=== PATIENT | female | born 1945 | race Caucasian/White ===

== ENCOUNTER 2017-01-08 08:14 | Outpatient (CLI) | payer MEDICARE ==
[2017-01-08 12:10] LABS: ALT (SGPT) 26 U/L (8-55); AST (SGOT) 38 U/L (5-34); Albumin 3.7 g/dL (3.4-4.8); Alkaline Phosphatase 184 U/L (40-150); Anion Gap 16 mmol/L (10-20); BUN (Urea Nitrogen) 11 mg/dL (9.8-20.1); Bilirubin, Total 0.8 mg/dL (0.2-1.2); Calc. Creatinine Clearance 0 mL/min (70-130); Calcium 9.7 mg/dL (7.8-10.44); Carbon Dioxide 23 mmol/L (23-31); Cardiac Risk 3.3 (Less than 4.5); Chloride 107 mmol/L (98-107); Cholesterol 194 mg/dl (< 200 Desired); Estimated GFR-MDRD 75; Globulin 4.2 g/dL (2.4-3.5); Glucose 145 mg/dL (83-110); HDL Cholesterol 58 mg/dL (>60 Neg Risk); LDL Cholesterol, Calculated 117 mg/dL; Potassium 4.3 mmol/L (3.5-5.1); Protein, Total 7.9 g/dL (6.0-8.3); Sodium 142 mmol/L (136-145); Triglycerides 96 mg/dL (Less than 150)
[2017-01-08 17:54] LABS: Creatinine, Urine 76.77 mg/dL (47-110); Microalbumin Urine Less than 1.0 mg/dL (0.5-50.0)
[2017-01-08 19:29] LABS: #Basophils 0.2 thou/uL (0.0-0.2); #Eosinphils 0.6 thou/uL (0.0-0.7); #Lymphocytes 2.2 thou/uL (1.20-3.40); #Monocytes 0.6 thou/uL (0.11-0.59); #Neutrophils 2.5 thou/uL (1.40-6.50); %Basophils 2.5 % (0.0-1.0); %Eosinophils 10.6 % (0.0-10.0); %Lymphocytes 36.6 % (21.0-51.0); %Monocytes 9.6 % (0.0-10.0); %Neutrophils 40.7 % (42.0-75.0); Hemoglobin 13.3 g/dL (12.0-16.0); Mean Corpuscular HGB CONC 33.9 g/dL (32.0-36.0); Mean Corpuscular Hemoglobin 33.6 pg (27.0-31.0); Mean Corpuscular Volume 99.3 fl (81.0-99.0); Mean Platelet Volume 5.8 fL (7.4-10.4); PLT Morphology Comment Appears Adequate; Platelet Count 86 thou/uL (130-400); RBC Distribution Width 13.1 % (11.5-14.5); Red Blood Cell (RBC) Count 3.95 mill/uL (4.20-5.40); White Blood Cell (WBC) Count 6.1 thou/uL (4.8-10.8)
== END 2017-01-08 08:15 | disposition home or self-care (01) ==
LOC: NAVSJIPCSP 08:14
PROVIDERS: ATTEND Internal Medicine
DX: E10.51 Type 1 diabetes mellitus with diabetic peripheral angiopathy without gangrene (principal); I65.21 Occlusion and stenosis of right carotid artery; K74.60 Unspecified cirrhosis of liver
CPT/HCPCS: 36415; 80053; 80061; 82043; 83036; 84443; 85025

== ENCOUNTER 2017-02-10 13:56 | Outpatient (CLI) | payer MEDICARE ==
--- NOTE | 2017-02-10 15:38 | CT ---
CT LUMBAR SPINE NONCONTRAST: Date: 02-10-17 History: 71-year-old female with lumbar spinal stenosis. Low back pain. Comparison: None. FINDINGS: In the limited field of view, it is noted that the liver margins are very nodular, and that the medi al aspect of the spleen protrudes far medially. No hydronephrosis. Atherosclerotic calcification wit hout aneurysm of abdominal aorta and most of its branches. Surgical clips in the gallbladder fossa. There are five lumbar type vertebrae. At L1-2 there is mild to moderate disc space narrowing and sli ght degenerative retrolisthesis of L1 on L2. The rest of the disc spaces are maintained. There is no spondylolysis or spondylolisthesis at any level. There is no central spinal canal stenosis at any l evel. There is no high grade neural foraminal stenosis at any level. No evidence of maya nerve root impingement at any level. There is diffuse osteopenia. IMPRESSION: 1. Hepatic cirrhosis. 2. Splenomegaly. 3. Status post cholecystectomy. 4. Osteopenia. 5. Mild to moderate degenerative disc disease at L1-2. 6. Otherwise, the rest of the lumbar spine is essentially normal. POS: STAR
== END 2017-02-10 13:57 | disposition home or self-care (01) ==
LOC: NAV CT 13:56
PROVIDERS: ATTEND Internal Medicine
DX: M48.062 Spinal stenosis, lumbar region with neurogenic claudication (principal); M51.36 Other intervertebral disc degeneration, lumbar region; M85.80 Other specified disorders of bone density and structure, unspecified site; K74.60 Unspecified cirrhosis of liver; R16.1 Splenomegaly, not elsewhere classified; Z90.49 Acquired absence of other specified parts of digestive tract
CPT/HCPCS: 72131

== ENCOUNTER 2017-03-19 09:32 | Outpatient (CLI) | payer MEDICARE ==
--- NOTE | 2017-03-19 10:22 | CT ---
CT CHEST NONCONTRAST CT ABDOMEN AND PELVIS NONCONTRAST: HISTORY: Abnormal chest radiograph. Lung nodule on outside radiograph. FINDINGS: Prior exams are not available for direct comparison. Lungs are hyperinflated with scattered intersti tial scarring. Calcified granulomata within the lungs and liver are consistent with healed granuloma tous disease. Gallbladder is not visualized and presumed surgically absent. No focal parenchymal so ft tissue density lung nodule is apparent. There is calcification in the arterial structures. Each renal collecting system and ureter are decompressed without stone evident. Urinary bladder is incomp letely distended. Lack of contrast limits evaluation for other abnormalities. The liver has a nodular contour. A smal l amount of free fluid is present within the abdomen and pelvis. Inflammation within the right abdom en involves and surrounds the second and third portions of the duodenum and the descending colon. Sc attered diverticula arise from the left colon without inflammation evident. IMPRESSION: 1. No noncalcified lung nodules are apparent. 2. Chronic obstructive pulmonary disease. Healed granulomatous disease. 3. Cirrhosis with mild splenomegaly and a small amount of ascites. 4. Inflammation within the right abdomen predominantly involves and surrounds the second and third p ortions of the duodenum and the right colon. Cause is not apparent. Clinical correlation regarding other signs and symptoms of right-sided colitis and duodenitis is required. Appendix is not particul meño inflamed, but please correlate with pancreatic laboratory values. POS: STAR
== END 2017-03-19 09:33 | disposition home or self-care (01) ==
LOC: NAV CT 09:32
PROVIDERS: ATTEND Internal Medicine
DX: R10.32 Left lower quadrant pain (principal); R91.1 Solitary pulmonary nodule; J44.9 Chronic obstructive pulmonary disease, unspecified; K74.60 Unspecified cirrhosis of liver; R16.1 Splenomegaly, not elsewhere classified; R18.8 Other ascites
CPT/HCPCS: 71250; 74177

== ENCOUNTER 2017-03-29 14:21 | Emergency (ER) | payer MEDICARE ==
[2017-03-29] MEDS ORDERED: Sodium Chloride 0.9% 1,000 ML ONE (14:27)
[2017-03-29] MEDS ORDERED: Ondansetron HCl/PF 4 MG/2 ML Vial ONE (14:27)
[2017-03-29 15:03] LABS: INR-International Normal Ratio 1.3; PTT 35.8 SEC (22.9-36.1); Prothrombin Time 16.6 SEC (12.0-14.7)
[2017-03-29 15:13] LABS: ALT (SGPT) 47 U/L (8-55); AST (SGOT) 56 U/L (5-34); Alkaline Phosphatase 235 U/L (40-150); Anion Gap 13 mmol/L (10-20); BUN (Urea Nitrogen) 5 mg/dL (9.8-20.1); Calc. Creatinine Clearance 0 mL/min (70-130); Calcium 8.8 mg/dL (7.8-10.44); Carbon Dioxide 24 mmol/L (23-31); Chloride 104 mmol/L (98-107); Estimated GFR-MDRD 75; Globulin 3.9 g/dL (2.4-3.5); Glucose 217 mg/dL (83-110); Lipase 28 U/L (8-78); Potassium 3.5 mmol/L (3.5-5.1); Protein, Total 6.9 g/dL (6.0-8.3); Sodium 137 mmol/L (136-145)
[2017-03-29 15:40] LABS: #Basophils 0.1 thou/uL (0.0-0.2); #Eosinphils 0.5 thou/uL (0.0-0.7); #Lymphocytes 1.7 thou/uL (1.20-3.40); #Monocytes 0.4 thou/uL (0.11-0.59); #Neutrophils 2.5 thou/uL (1.40-6.50); %Basophils 2.4 % (0.0-1.0); %Eosinophils 9.7 % (0.0-10.0); %Monocytes 7.4 % (0.0-10.0); %Neutrophils 47.5 % (42.0-75.0); MDiff Complete? YES; Macrocytosis MODERATE=16-30 cells (100X) (0-5/hpf); Mean Corpuscular HGB CONC 32.9 g/dL (32.0-36.0); Mean Corpuscular Hemoglobin 34.5 pg (27.0-31.0); Mean Platelet Volume 6.8 fL (7.4-10.4); PLT Morphology Comment Appears Decreased; Platelet Count 72 thou/uL (130-400); RBC Distribution Width 12.5 % (11.5-14.5); Red Blood Cell (RBC) Count 3.77 mill/uL (4.20-5.40); Target Cells SLIGHT = 2-5 cells (100X) (0-1/hpf); White Blood Cell (WBC) Count 5.2 thou/uL (4.8-10.8)
[2017-03-29 15:54] LABS: Bilirubin Negative (Negative); Blood, Urine Trace (Negative); Clarity Clear (Clear); Glucose, Urine (Dipstick) Negative (Negative); Leukocyte Negative (Negative); Nitrite Negative (Negative); Protein, Urine (Dipstick) Negative (Neg-Trace)
[2017-03-29 16:01] LABS: RBC/HPF 0-3 HPF (0-3); Squamous Epithelial 0-3 HPF (0-3)
[2017-03-29 16:02] LABS: Bacteria/HPF Rare-Few HPF (None Seen)
[2017-03-29] MEDS ORDERED: metroNIDAZOLE 500 MG/100 ML BAG ONE (16:31)
[2017-03-29] MEDS ORDERED: methylPREDNISolone Sod Succ/PF 125 MG/2 ML VIAL ONE (16:31)
--- NOTE | 2017-03-29 16:41 | CT ---
CT ABDOMEN AND PELVIS WITHOUT IV CONTRAST; Date: 03/29/17 Multiple axial tomograms obtained through the abdomen and pelvis without IV enhancement. Oral contras t administered. HISTORY: Abdominal; pain. COMPARISON: Recent CT of chest/abdomen/pelvis dated 03/19/17. The prior CT described cirrhosis with splenomegaly and a small amount of ascites. There was inflammat ion involving the colon with mural thickening and mural thickening involving the duodenum noted. FINDINGS: Lung bases show chronic lung disease and a calcified granuloma in the left lung base. Abdominal ascites has slightly increased since the prior study. The liver continues to show a nodular contour consistent with cirrhosis. Splenomegaly is again noted. Kidneys are unremarkable with no hydronephrosis. There is free fluid in the deep pelvis. Small bowel loops show nonspecific distention. There continues to be evidence of mural thickening inv olving the first and second portions of the duodenum of uncertain significance. The mural thickening of the colon noted previously is less prominent today. There is stool throughout the colon. Aorta is calcified but normal caliber. IMPRESSION: 1. Mild increase in the ascites when compared to 03/19/17. 2. Evidence of cirrhosis and portal hypertension with splenomegaly. 3. Nonspecific distention of proximal small bowel loops. Mural thickening involving the first and se cond portions of the duodenum. Consider endoscopy. 4. There is fluid in the mid abdomen and pelvis. 5. Continued mild mural thickening in the right colon, although mural thickening in the transverse a nd left colon previously is less pronounced today. A right colitis remains a possibility. POS: STAR
== END 2017-03-29 16:55 | disposition short-term general hospital (02) ==
LOC: NAV ERS 14:21
DX: K52.9 Noninfective gastroenteritis and colitis, unspecified (principal); K56.7 Ileus, unspecified; J44.9 Chronic obstructive pulmonary disease, unspecified; B19.20 Unspecified viral hepatitis C without hepatic coma; Z87.891 Personal history of nicotine dependence
CPT/HCPCS: 74176; 80053; 81003; 81015; 83605; 83690; 85025; 85610; 85730; 96361; 96365; 96375; J2270; J2405; J2930; J7050